=== PATIENT | female | born 1940 | race Caucasian/White ===

== ENCOUNTER 2018-10-20 22:24 | Inpatient (IN) | payer MEDICARE ==
--- NOTE | ~2018-10-20 | PSY ---
PATIENT NAME:PIERRE LEAHY MEDICAL RECORD: [id number] : 38 LOCATION:[facility] ADMISSION DATE: 10/21/18 ACCOUNT: [id number] PSYCHIATRIC EVALUATION DATE OF EVALUATION: 10/21/18 Psychiatric Evaluation IDENTIFYING DATA: The patient is 78 years old and she is admitted to the hospital on a voluntary basis. CHIEF COMPLAINT: Agitation. HISTORY OF PRESENT ILLNESS: The patient lives in an assisted living center in [place]. Apparently, she is refusing to take her medicines there and her family took her out for an outing in the car, but when they brought her back to the assisted living center she became extremely angry and agitated and was accusing them of having stolen her property, specifically her house from her. She was taken to the Emergency Room at [facility] where she continued to be quite agitated and disruptive and they referred her to us. Upon interview, it takes a fair amount of effort to keep her calm and try to have her explain what is going on. She is circumspect in her thought processes and easily escalates, but a brief synopsis of the situation as she sees it is this. She has a house in [place], her . She transferred the house to her son and he was going to care for her, but now she says he just wants to put her in a assisted and take her property from her. That in and of itself is not delusional and certainly may be the case, but it is not something that I can assist her with tonight, but the treatment team and psychosocial rehabilitation counselor will begin working on this and getting additional information as soon as possible. She in the meantime is showing clear evidence of cognitive impairment and clear evidence of what may be either confused or delusional thought content. PAST MEDICAL HISTORY: Significant for vertigo and a transient ischemic attack. She also has cataracts and diabetes. She has a history of hypertension, congestive heart failure and cardiac pacemaker placement. She has had cardiac stents placed along with angioplasty. She is in chronic atrial fibrillation, has edema and angina. She has COPD and history of colon cancer with a resection. She is confused on this matter, telling me at one point that it was 8 years ago and then telling me that it was earlier this year or about 5 months ago. This is an area I am not quite sure about, but it is important and we need clarification on it. She also has a history of diarrhea, constipation and acid reflux. She has chronic back pain, arthritis and has had joint replacement surgery. She has osteoporosis and dermatitis. She has had a hysterectomy and is postmenopausal. The joint replacement was bilaterally and it was with her knees. She has had a colon resection from the cancer which I presume was obviously remote but I do not know if there has been some kind of recurrence. She has had a hernia, hysterectomy, cataracts and cataract surgery. PAST PSYCHIATRIC HISTORY: Significant for an established diagnosis of dementia, she denies this has ever happened and she has a history of depression. FAMILY HISTORY: Negative for psychiatric disease by her account, which I think is unreliable. ALLERGIES: EDGAR INHIBITORS, THE REACTION IS UNKNOWN. CURRENT MEDICATIONS: Include isosorbide mononitrate, vitamin B12, calcium carbonate, probiotic, Eliquis, Colace, Zyrtec, calcium carbonate, Mucinex, hydrocortisone cream, Ultram, Glucophage, Lanoxin, Namenda, Xanax, Claritin, Betapace, potassium, vitamin D3, BuSpar, Zoloft, Singulair, Spiriva, Bumex, Ranexa, Proventil, Nitrostat, Ventolin, Pravachol, aspirin, Feosol, Theragran, acetaminophen, Pepcid, MiraLax, glucosamine, vitamin C, and Keflex. SOCIAL HISTORY: The patient does not smoke or drink and never has. Obviously, she has never used illicit drugs either. She is . She is confused about how many children she had telling me at one point, she had only 1 son and a daughter who is , but then later saying she has 4 children, 1 son and 2 daughters and 1 . I do not know which it is. She is . MENTAL STATUS EXAMINATION: The patient is awake, alert and oriented to person and place, but not to time or situation. Her mood is angry. Her affect is constricted. Thought processes are circumstantial. Memory, concentration, and abstraction abilities are moderately impaired and she denies any active intent to harm herself or others as well as any overt psychotic symptoms. ASSETS: Supportive family members. LIABILITIES: Limited insight. DIAGNOSTIC IMPRESSION: AXIS I: Vascular dementia. AXIS II: None. AXIS III: Coronary artery disease, atrial fibrillation, congestive heart failure, COPD, gastroesophageal reflux disease, osteoarthritis, chronic back pain, diabetes, hyperlipidemia, hypertension. AXIS IV: Severe. AXIS V: Global assessment of functioning is 25. PLAN: At this time, the patient is admitted to the hospital secondary to agitation associated with a dementing illness. I think the illnesses vascular based upon her past stroke, her hyperlipidemia, diabetes and her atrial fibrillation, all of which are likely to cause microvascular disease consistent with a vascular dementia. Clearly, she is in need of significant assistance and supervision. Obviously, the psychosocial rehabilitation counselor will investigate whether she is being exploited as she claims. Whether she is being exploited or not will be a matter to turn over to the authorities for them to investigate, but I can clearly say that this woman is not capable of living on her own and is unlikely to ever be capable of doing so. What is not clear based upon the social circumstances and my initial assessment of her is which environment would be the least restrictive. TRANSINT:[id number] Voice Confirmation ID: [id number] DOCUMENT ID: [id number] LILIAN PETTIT MD at 1204 CC: [id number] DICTATION DATE: 10/21/181910 CONVEYOR FEEDER OFFBEARER: 10/22/18 0323 [facility] IN [facility] [address] [id number]
--- NOTE | ~2018-10-20 | PN ---
PATIENT:PIERRE LEAHY MEDICAL RECORD: [id number] LOCATION:[facility] ADMISSION DATE: 10/21/18 PROGRESS NOTE DATE OF SERVICE: 10/23/2018 SUBJECTIVE: The patient's case was discussed with staff. She has no new complaint. OBJECTIVE: The patient is in good behavioral control with limited insight about her condition. She tolerates her medicines well. ASSESSMENT: No change in diagnoses. PLAN: Current medicines and therapies have been reviewed and will be maintained. Long-term prognosis is guarded. TRANSINT:[id number] Voice Confirmation ID: [id number] DOCUMENT ID: [id number] LILIAN PETTIT MD at 1541 CC: [id number] DICTATION DATE: 10/23/18 1213 WRONG ADDRESS CLERK: 10/23/18 1721 ADM IN [facility] [address] [place] [address]
--- NOTE | ~2018-10-20 | PN ---
PATIENT:PIERRE LEAHY MEDICAL RECORD: [id number] LOCATION:DAT [facility] ADMISSION DATE: 10/21/18 PROGRESS NOTE DATE OF SERVICE: 11/03/2018 SUBJECTIVE: The patient's case was discussed with staff. She has no new complaint. OBJECTIVE: The patient is in good behavioral control with limited insight about her condition. She is tolerating her medicines well. She is going to be returned to the [facility] tomorrow. Her long-term prognosis is guarded. TRANSINT:[id number] Voice Confirmation ID: [id number] DOCUMENT ID: [id number] LILIAN PETTIT MD at 1217 CC: [id number] DICTATION DATE: 11/03/18 1209 FIRE ALARM TECHNICIAN: 11/03/18 1425 DIS IN 11/04/18 [facility] [address] [place] [address]
--- NOTE | ~2018-10-20 | PN ---
PATIENT:PIERRE LEAHY MEDICAL RECORD: [id number] LOCATION:DAT [facility] ADMISSION DATE: 10/21/18 PROGRESS NOTE DATE OF SERVICE: 10/24/2018 SUBJECTIVE: The patient's case was discussed with staff. She has no new complaint. OBJECTIVE: The patient is in good behavioral control and has not been aggressive. Unfortunately, she is severely impaired cognitively and will not budge 1 inch from the position that she is going to go home and live independently in her house in [place]. ASSESSMENT: No change in diagnoses. PLAN: This patient is too impaired to live alone. At this point, licensed master social worker is still sorting out the options, but it is not safe for her to live alone. I am not even sure she still has a house after having been in an assisted living center for 6 months, but this is what she says. TRANSINT:[id number] Voice Confirmation ID: [id number] DOCUMENT ID: [id number] LILIAN PETTIT MD at 1147 CC: [id number] DICTATION DATE: 10/24/18 1643 SHEETER MACHINE OPERATOR: 10/25/18 0047 ADM IN [facility] [address] [place] [address]
--- NOTE | ~2018-10-20 | PN ---
PATIENT:PIERRE LEAHY MEDICAL RECORD: [id number] LOCATION:DAT [facility] ADMISSION DATE: 10/21/18 PROGRESS NOTE DATE OF SERVICE: 10/28/2018 SUBJECTIVE: The patient's case was discussed with staff. She has no new complaint. OBJECTIVE: The patient is in good behavioral control with limited insight about her condition. She does tolerate her medicines well. Her family is trying to take charge of this situation. They have been advised that it is my opinion, I have advised them that she is too advanced with her dementia to live in assisted living. They are going to see with the help of our bilingual social worker about placing her at the [facility]. I think this level of care is appropriate given the current condition. TRANSINT:[id number] Voice Confirmation ID: [id number] DOCUMENT ID: [id number] LILIAN PETTIT MD at 1101 CC: [id number] DICTATION DATE: 10/28/18 1519 AUTO TRANSMISSION TECHNICIAN: 10/28/18 2348 ADM IN [id number] [place] [address]
--- NOTE | ~2018-10-20 | PN ---
PATIENT:PIERRE LEAHY MEDICAL RECORD: [id number] LOCATION:DAT [facility] ADMISSION DATE: 10/21/18 PROGRESS NOTE DATE OF SERVICE: 10/26/2018 SUBJECTIVE: The patient's case was discussed with staff. She has no new complaint. OBJECTIVE: The patient is in good behavioral control with poor insight about her condition. ASSESSMENT: No change in diagnoses. PLAN: Current medicines have been reviewed and will be maintained. Her long-term prognosis is guarded. TRANSINT:[id number] Voice Confirmation ID: [id number] DOCUMENT ID: [id number] LILIAN PETTIT MD at 1018 CC: [id number] DICTATION DATE: 10/26/18 1255 AGRICULTURAL MECHANIC: 10/26/18 1444 ADM IN [id number] [place] [address]
--- NOTE | ~2018-10-20 | PN ---
PATIENT:PIERRE LEAHY MEDICAL RECORD: [id number] LOCATION:DAT [facility] ADMISSION DATE: 10/21/18 PROGRESS NOTE DATE OF SERVICE: 10/27/2018 SUBJECTIVE: The patient's case was discussed with staff. She has no new complaint. OBJECTIVE: The patient is significantly impaired, but denies that she is wanting to hurt herself or others. She is tolerating her medications well. ASSESSMENT: No change in diagnosis. PLAN: Current medicines have been reviewed. I am going to reduce her Xanax slightly and plan to taper her off it completely if possible. Her family says that she does have a history of abusing this medication. TRANSINT:[id number] Voice Confirmation ID: [id number] DOCUMENT ID: [id number] LILIAN PETTIT MD at 1239 CC: [id number] DICTATION DATE: 10/27/18 1431 HOGSHEAD LINER: 10/27/182001 ADM IN [facility] [address] [place] [address]
--- NOTE | ~2018-10-20 | PN ---
PATIENT:PIERRE LEAHY MEDICAL RECORD: [id number] LOCATION:DAT [facility] ADMISSION DATE: 10/21/18 PROGRESS NOTE DATE OF SERVICE: 11/02/2018 SUBJECTIVE: The patient's case was discussed with staff. She has no new complaint. OBJECTIVE: The patient is in good behavioral control. She has fairly limited insight about her condition. ASSESSMENT: No change in diagnoses. PLAN: The patient will have the final quarter of a milligram a day of Xanax that she is taking discontinued. The taper that has occurred so far has been without any consequence and I think it is reasonable to go ahead and discharge this medicine, especially since she has a history of overtaking it. I do not see a clinical indication for it at this point. TRANSINT:[id number] Voice Confirmation ID: [id number] DOCUMENT ID: [id number] LILIAN PETTIT MD at 0858 CC: [id number] DICTATION DATE: 11/02/18 121 REFRIGERATOR ROOM CLERK: 11/02/18 1452 ADM IN [address] [id number] [place] [address]
--- NOTE | ~2018-10-20 | DS ---
PATIENT:PIERRE LEAHY :38 MEDICAL RECORD: [id number] DISCHARGE SUMMARY ADMISSION DATE: 10/21/18 DISCHARGE DATE: 11/04/18 IDENTIFYING DATA: The patient is 78 years old and she was admitted to the hospital on a voluntary basis because of agitation. The patient lives in an assisted living center in [place]. She has been refusing to take her medicines and when her family took her out for an outing and brought her back, she refused to go into the assisted living center, became agitated and aggressive and accusing others of trying to steal from her. Specifically, she was accusing them of trying to steal her house, which in actuality she had signed over to her son many years ago. She has been in the assistance and living center for a long time. They brought her to the Emergency Room at [facility], where she continued to be disruptive, agitated, and delusional and they referred her to us for treatment. HOSPITAL COURSE: The patient was admitted to the hospital and fully evaluated from both a medical, psychological, and social standpoint. She was treated with both mood stabilizing and memory enhancing medications. Based upon her medical history that included atrial fibrillation, coronary artery disease, diabetes, hyperlipidemia, and hypertension, it was felt that she was suffering from a vascular dementia. She also had a pattern consistent with this and that there were some areas where she was fairly intact and others where she was quite impaired. It was not consistent with an Alzheimer disease where there is a global generalized and gradual deterioration. She was treated with both memory enhancing and mood stabilizing medications and did show improvement. She was subsequently returned to the same facility that she had refused to enter previously. DISCHARGE DIAGNOSES: AXIS I: Vascular dementia. AXIS II: None. AXIS III: Coronary artery disease, atrial fibrillation, congestive heart failure, chronic obstructive pulmonary disease, gastroesophageal reflux disease, osteoarthritis, chronic back pain, diabetes, hyperlipidemia, hypertension. AXIS IV: Severe. AXIS V: Global assessment of functioning 30. PLAN: At this time, the patient is admitted to the hospital for comprehensive medical, psychological, and social evaluation. She will be treated with mood stabilizing and memory enhancing medications. She denies any active intent to harm herself or others. Long-term prognosis is guarded. TRANSINT:[id number] Voice Confirmation ID: [id number] DOCUMENT ID: [id number] LILIAN PETTIT MD CC: [id number] DICTATION DATE: 11/07/18 1401 HARVEST WORKER FRUIT: 11/08/18 0154 DIS IN 11/04/18 [facility] [address] [place] [address]
--- NOTE | ~2018-10-20 | PN ---
PATIENT:PIERRE LEAHY MEDICAL RECORD: [id number] LOCATION:DAT [facility] ADMISSION DATE: 10/21/18 PROGRESS NOTE DATE OF SERVICE: 10/25/2018 SUBJECTIVE: The patient's case was discussed with staff. She has no new complaint. OBJECTIVE: The patient is in good behavioral control with limited insight about her condition. She is tolerating her medications well. ASSESSMENT: No change in diagnoses. PLAN: The patient will be given Aricept at a dose of 5 mg at bedtime. Aricept is being used to treat her cognitive impairment. She will be monitored for clinical changes associated with its use. TRANSINT:[id number] Voice Confirmation ID: [id number] DOCUMENT ID: [id number] LILIAN PETTIT MD at 1142 CC: [id number] DICTATION DATE: 10/25/18 1215 CODING MACHINE OPERATOR: 10/25/18 1221 ADM IN [address] [address]
--- NOTE | ~2018-10-20 | PN ---
PATIENT:PIERRE LEAHY MEDICAL RECORD: [id number] LOCATION:DAT [facility] ADMISSION DATE: 10/21/18 PROGRESS NOTE DATE OF SERVICE: 10/22/2018 SUBJECTIVE: The patient's case was discussed with staff. She has no new complaint. OBJECTIVE: The patient has eaten and slept reasonably well. She insists that she needs to go to her house in [place] and that no one lives there and that there are utilities on and that she still owns it. I think there is significant reason to suspect that all of that is correct, but at this point, I am going to continue to gather collateral sources of information. There is something of an impediment with that since it is a weekend and I do not have access to our certified social workers in health care. She is clearly impaired and in my opinion should not be living alone. I do not know if there really is a house, if it is still there, if she still owns it and I am not sure how it would still have utilities and be vacant after she has been gone for almost 6 months. TRANSINT:[id number] Voice Confirmation ID: [id number] DOCUMENT ID: [id number] LILIAN PETTIT MD at 1052 CC: [id number] DICTATION DATE: 10/22/18 1221 HERBARIUM WORKER: 10/22/18 1520 ADM IN [id number] [place] [address]
--- NOTE | ~2018-10-20 | PN ---
PATIENT:PIERRE LEAHY MEDICAL RECORD: [id number] LOCATION:DAT [facility] ADMISSION DATE: 10/21/18 PROGRESS NOTE DATE OF SERVICE: 10/30/2018 SUBJECTIVE: The patient's case was discussed with staff. She has no new complaint. OBJECTIVE: The patient is in good behavioral control with limited insight about her condition. She has not been aggressive. ASSESSMENT: No change in diagnoses. PLAN: Current medicines have been reviewed and will be maintained. Long-term prognosis is guarded. TRANSINT:[id number] Voice Confirmation ID: [id number] DOCUMENT ID: [id number] LILIAN PETTIT MD at 1555 CC: [id number] DICTATION DATE: 10/30/18 1009 UNDERGROUND MINE MACHINERY MECHANIC: 10/30/18 1107 ADM IN [address] [address]
--- NOTE | ~2018-10-20 | PN ---
PATIENT:PIERRE LEAHY MEDICAL RECORD: [id number] LOCATION:DAT [facility] ADMISSION DATE: 10/21/18 PROGRESS NOTE DATE OF SERVICE: 10/31/2018 SUBJECTIVE: The patient's case was discussed with staff. She has no new complaint. OBJECTIVE: The patient denies intent to harm herself or others. She generally tolerates her medications well. She has not been behaviorally out of control, but she is very argumentative about her circumstances, insisting that she has family members at home who can care for her. This simply is not the case. Any effort to tell her that just makes her angry. ASSESSMENT: No change in diagnoses. PLAN: I am going to taper the patient's Xanax a little further. I do plan to discontinue it altogether in a couple of days. TRANSINT:[id number] Voice Confirmation ID: [id number] DOCUMENT ID: [id number] LILIAN PETTIT MD at 1443 CC: [id number] DICTATION DATE: 10/31/18 1631 CLINICAL RESOURCE NURSE: 10/31/18 1905 ADM IN [facility] [address] [place] [address]
--- NOTE | ~2018-10-20 | PN ---
PATIENT:PIERRE LEAHY MEDICAL RECORD: [id number] LOCATION:DAT [facility] ADMISSION DATE: 10/21/18 PROGRESS NOTE DATE OF SERVICE: 11/01/2018 SUBJECTIVE: The patient's case was discussed with staff. She has no new complaint. OBJECTIVE: The patient is in good behavioral control with limited insight about her condition. She generally tolerates her medicines well. ASSESSMENT: No change in diagnoses. PLAN: Supportive and educational interventions were made. I anticipate the patient can be discharged soon if this level of improvement continues. TRANSINT:[id number] Voice Confirmation ID: [id number] DOCUMENT ID: [id number] LILIAN PETTIT MD at 1128 CC: [id number] DICTATION DATE: 11/01/18 1548 MILITARY PAY CLERK: 11/01/18 1722 ADM IN [id number] [place] [address]
--- NOTE | ~2018-10-20 | PN ---
PATIENT:PIERRE LEAHY MEDICAL RECORD: [id number] LOCATION:DAT [facility] ADMISSION DATE: 10/21/18 PROGRESS NOTE DATE OF SERVICE: 10/29/2018 SUBJECTIVE: The patient's case was discussed with staff. She has no new complaint. OBJECTIVE: The patient denies intent to harm herself or others. She is oriented to person and place. She is tolerating her medicines well and she is eating and sleeping reasonably well. ASSESSMENT: No change in diagnoses. PLAN: I anticipate that within the next 7 days she can reasonably be transitioned to the [facility]. TRANSINT:[id number] Voice Confirmation ID: [id number] DOCUMENT ID: [id number] LILIAN PETTIT MD at 0924 CC: [id number] DICTATION DATE: 10/29/18 1139 CAR PORTER: 10/29/18 1209 ADM IN [id number] [place] [address]
[2018-10-21] MEDS ORDERED: ISOSORBIDE MONO30 M1 PO ×2 (00:38→01:10)
[2018-10-21] MEDS ORDERED: VITAMIN B-121000 MCG IM (00:42)
[2018-10-21] MEDS ORDERED: CALCIUM 600 +1 EAC3 PO (00:43)
[2018-10-21] MEDS ORDERED: ELIQUIS2.5 MG PO (00:45)
[2018-10-21] MEDS ORDERED: PROBIOTIC250 MG PO (00:45)
[2018-10-21] MEDS ORDERED: COLACE100 MG PO (00:46)
[2018-10-21] MEDS ORDERED: ZYRTEC10 MG PO (00:46)
[2018-10-21] MEDS ORDERED: GAS-X125 M1 PO (00:47)
[2018-10-21] MEDS ORDERED: TUMS X-STR300 MG PO (00:48)
[2018-10-21] MEDS ORDERED: MUCINEX600 MG PO (00:49)
[2018-10-21] MEDS ORDERED: HYDROCORTISONE30 G8 TOPICAL (00:51)
[2018-10-21] MEDS ORDERED: FLUTICASONE PRO16 GM NASAL (00:51)
[2018-10-21] MEDS ORDERED: ULTRAM50 MG PO (00:52)
[2018-10-21] MEDS ORDERED: GLUCOPHAGE500 MG PO (00:53)
[2018-10-21] MEDS ORDERED: LANOXIN125 MCG PO (00:54)
[2018-10-21] MEDS ORDERED: NAMENDA5 MG PO (00:54)
[2018-10-21] MEDS ORDERED: XANAX0.5 MG PO (00:55)
[2018-10-21] MEDS ORDERED: CLARITIN 10 MG10 MG PO (00:56)
[2018-10-21] MEDS ORDERED: BETAPACE 120 M120 MG PO (00:57)
[2018-10-21] MEDS ORDERED: KLOR-CON 1010 MEQ PO (00:58)
[2018-10-21] MEDS ORDERED: BUSPAR10 MG PO (00:59)
[2018-10-21] MEDS ORDERED: VITAMIN D31000 UNIT PO (00:59)
[2018-10-21] MEDS ORDERED: ZOLOFT100 MG PO (01:00)
[2018-10-21] MEDS ORDERED: SINGULAIR5 MG PO (01:01)
[2018-10-21] MEDS ORDERED: SPIRIVA RESPIMAT4 G1 INH (01:01)
[2018-10-21] MEDS ORDERED: BUMEX2 MG PO (01:06)
[2018-10-21] MEDS ORDERED: RANEXA1000 MG PO (01:06)
[2018-10-21] MEDS ORDERED: NITROSTAT0.4 MG SL (01:08)
[2018-10-21] MEDS ORDERED: PROVENTIL/2.5 MG/3 M INH (01:08)
[2018-10-21] MEDS ORDERED: VENTOLIN HFA18 GM INH (01:09)
[2018-10-21] MEDS ORDERED: PRAVACHOL40 MG PO (01:10)
[2018-10-21] MEDS ORDERED: BAYER CHEWABLE81 MG PO (01:11)
[2018-10-21] MEDS ORDERED: MULTI-DAY VITAM1 TAB PO (01:11)
[2018-10-21] MEDS ORDERED: ACETAMINOPHEN500 M1 PO (01:12)
[2018-10-21] MEDS ORDERED: FERROUS SULFAT325 MG PO (01:12)
[2018-10-21] MEDS ORDERED: PEPCID AC20 MG PO (01:13)
[2018-10-21] MEDS ORDERED: GLUCOSAMINE HC500 MG PO (01:14)
[2018-10-21] MEDS ORDERED: MIRALAX17 GM PO (01:14)
[2018-10-21] MEDS ORDERED: ASCORBIC ACID500 MG PO (01:15)
[2018-10-21 02:02] VITALS: BP 196/85; BMI 29.1
[2018-10-21] MEDS ORDERED: KEFLEX500 MG PO (02:26)
[2018-10-21 08:34] LABS: BASOPHILS 0.3 % (0-2); EOSINOPHILS 1.4 % (0-7); HEMATOCRIT 38.9 % (36.0-48.0); HEMOGLOBIN 12.7 g/dL (12-16); IMMATURE GRANULOCYTES 0.6 % (0-5); LYMPHOCYTES 17.1 % (15-50); MCH 29.5 pg (26.0-34.0); MCHC 32.6 g/dL (31.0-37.0); MCV 90.3 fL (80.0-100.0); MEAN PLATELET VOLUME 9.6 fL (7.4-10.4); NEUTROPHILS 72.6 % (40-80); PLATELET COUNT 288 10x3/uL (130-400); RBC 4.31 10x6/uL (4.00-5.40); RDW 13.1 % (11.5-14.5); WBC 12.4 10x3/uL (4.8-10.8)
[2018-10-21 08:49] LABS: APPEARANCE CLEAR (CLEAR); BILIRUBIN NEGATIVE (NEGATIVE); COLOR YELLOW (YELLOW); GLUCOSE NEGATIVE (NEGATIVE); KETONE NEGATIVE (NEGATIVE); NITRITE NEGATIVE (NEGATIVE); PROTEIN NEGATIVE (NEGATIVE); SPECIFIC GRAVITY 1.005 (1.005-1.020); UROBILINOGEN NORMAL (NORMAL)
[2018-10-21 09:05] LABS: ALBUMIN 3.5 g/dL (3.4-5.0); ANION GAP 15.4 mmol/L (8-16); BILIRUBIN - TOTAL 0.4 mg/dL (0.2-1.3); CALCIUM 8.5 mg/dL (8.5-10.1); CARBON DIOXIDE 25.1 mmol/L (21.0-32.0); CHOL - HDL RATIO 3.2 ratio (2.3-4.1); CREATININE - SERUM 1.5 mg/dL (0.6-1.3); LDL-HDL RATIO 1.4 ratio (1.5-3.5); POTASSIUM - SERUM 4.5 mmol/L (3.5-5.1); PROTEIN - SERUM 6.8 g/dL (6.4-8.2); THYROID STIMULATING HORMONE 2.6 uIU/mL (0.36-3.74)
[2018-10-21 09:14] VITALS: BP 160/50
[2018-10-21 10:08] VITALS: BMI 29.1
[2018-10-21 13:13] VITALS: Wt 69.9 kg
[2018-10-21 19:40] VITALS: BP 100/64
[2018-10-22 07:18] LABS: RAPID PLASMA REAGIN Non Reactive (Non Reactive)
[2018-10-22 09:33] VITALS: BP 180/76
[2018-10-22 11:13] LABS: FOLATE (FOLIC ACID) - SERUM >20.0 ng/mL (>3.0)
[2018-10-22 12:12] LABS: VITAMIN D 25 HYDROXY 46.3 ng/mL (30.0-100.0)
[2018-10-23 09:38] VITALS: BP 144/77
[2018-10-23 20:31] VITALS: BP 175/73
[2018-10-24 07:00] VITALS: BP 168/84
[2018-10-24 20:20] VITALS: BP 122/50
[2018-10-25 07:00] VITALS: BP 166/77
[2018-10-25 20:00] VITALS: BP 165/67
[2018-10-26 19:55] VITALS: BP 161/72
[2018-10-27 09:30] VITALS: BP 162/78
[2018-10-27 19:25] VITALS: BP 158/78
[2018-10-28 09:58] VITALS: BP 160/64
[2018-10-28 20:24] VITALS: BP 171/91
[2018-10-29 08:00] VITALS: BP 157/88
[2018-10-29 19:39] VITALS: BP 168/74
[2018-10-30 07:00] VITALS: BP 163/81
[2018-10-30 20:41] VITALS: BP 171/88
[2018-10-31 08:00] VITALS: BP 195/97
[2018-10-31 19:33] VITALS: BP 150/79
[2018-11-01 08:00] VITALS: BP 169/82
[2018-11-01 20:04] VITALS: BP 146/59
[2018-11-02 08:00] VITALS: BP 163/80
[2018-11-02 19:36] VITALS: BP 144/71
[2018-11-03 09:50] VITALS: BP 144/66
[2018-11-03] MEDS ORDERED: Aricept PO (12:11)
[2018-11-03] MEDS ORDERED: HYDRALAZINE HCL25 MG PO (12:11)
[2018-11-03] MEDS ORDERED: LIDODERM 5 %1 PATCH TRANSDERM (12:13)
[2018-11-03 20:00] VITALS: BP 174/83
== END 2018-11-04 10:20 | disposition home or self-care (01) | DRG 57 ==
LOC: D.PSYCH 22:24
PROVIDERS: Psychiatry & Neurology Psychiatry
DX: I69.818 Other symptoms and signs involving cognitive functions following other cerebrovascular disease (principal); F01.51 Vascular dementia, unspecified severity, with behavioral disturbance; I25.10 Atherosclerotic heart disease of native coronary artery without angina pectoris; I11.0 Hypertensive heart disease with heart failure; I50.9 Heart failure, unspecified; I48.2 Chronic atrial fibrillation; F41.9 Anxiety disorder, unspecified; F32.9 Major depressive disorder, single episode, unspecified; G89.29 Other chronic pain; M54.9 Dorsalgia, unspecified; M19.90 Unspecified osteoarthritis, unspecified site; J44.9 Chronic obstructive pulmonary disease, unspecified; K21.9 Gastro-esophageal reflux disease without esophagitis; E11.9 Type 2 diabetes mellitus without complications; E78.5 Hyperlipidemia, unspecified; K59.09 Other constipation; E55.9 Vitamin D deficiency, unspecified; D64.9 Anemia, unspecified; J30.9 Allergic rhinitis, unspecified

== ENCOUNTER 2019-07-17 05:49 | Day surgery (SDC) | payer MEDICARE ==
[~2019-07-17] VITALS: Ht 154.9 cm; Wt 66.8 kg
[~2019-07-17 05:49] MED LIST: ACETAMINOPHEN500 M1 PO; ASCORBIC ACID500 MG PO; Aricept PO; BAYER CHEWABLE81 MG PO; BETAPACE 120 M120 MG PO; BUMEX2 MG PO; BUSPAR10 MG PO; CALCIUM 600 +1 EAC3 PO; CLARITIN 10 MG10 MG PO; COLACE100 MG PO; ELIQUIS2.5 MG PO; FERROUS SULFAT325 MG PO; FLUTICASONE PRO16 GM NASAL; GAS-X125 M1 PO; GLUCOPHAGE500 MG PO; GLUCOSAMINE HC500 MG PO; HYDRALAZINE HCL25 MG PO; HYDROCORTISONE30 G8 TOPICAL; ISOSORBIDE MONO30 M1 PO; KEFLEX500 MG PO; KLOR-CON 1010 MEQ PO; LANOXIN125 MCG PO; LIDODERM 5 %1 PATCH TRANSDERM; MIRALAX17 GM PO; MUCINEX600 MG PO; MULTI-DAY VITAM1 TAB PO; NAMENDA5 MG PO; NITROSTAT0.4 MG SL; PEPCID AC20 MG PO; PRAVACHOL40 MG PO; PROBIOTIC250 MG PO; PROVENTIL/2.5 MG/3 M INH; RANEXA1000 MG PO; SINGULAIR5 MG PO; SPIRIVA RESPIMAT4 G1 INH; TUMS X-STR300 MG PO; ULTRAM50 MG PO; VENTOLIN HFA18 GM INH; VITAMIN B-121000 MCG IM; VITAMIN D31000 UNIT PO; XANAX0.5 MG PO; ZOLOFT100 MG PO; ZYRTEC10 MG PO
[2019-07-17 06:15] LABS: BASOPHILS 0.4 % (0-2); EOSINOPHILS 1.1 % (0-7); HEMATOCRIT 27.8 % (36.0-48.0); HEMOGLOBIN 8.9 g/dL (12-16); IMMATURE GRANULOCYTES 0.4 % (0-5); LYMPHOCYTES 14.2 % (15-50); MCH 30.2 pg (26.0-34.0); MCV 94.2 fL (80.0-100.0); MONOCYTES 10.2 % (2-11); NEUTROPHILS 73.7 % (40-80); PLATELET COUNT 233 10x3/uL (130-400); RBC 2.95 10x6/uL (4.00-5.40); RDW 15.4 % (11.5-14.5); WBC 5.4 10x3/uL (4.8-10.8)
[2019-07-17 06:38] LABS: ANION GAP 12.9 mmol/L (8-16); CALCIUM 9.1 mg/dL (8.5-10.1); CARBON DIOXIDE 27.5 mmol/L (21.0-32.0); CREATININE - SERUM 1.5 mg/dL (0.6-1.3); POTASSIUM - SERUM 4.4 mmol/L (3.5-5.1)
[2019-07-17] MEDS ORDERED: BAYER CHEWABLE81 MG PO (06:45)
[2019-07-17] MEDS ORDERED: OSTEO BI-FLEX1 EAC1 PO (06:48)
[2019-07-17] MEDS ORDERED: ZYRTEC10 MG PO (06:54)
[2019-07-17 07:10] VITALS: BP 169/99; Ht 154.9 cm; Wt 66.8 kg
--- NOTE | 2019-07-18 15:07 | OP ---
PATIENT NAME: PIERRE LEAHY MEDICAL RECORD: [id number] :38 LOCATION:[facility]Y ADMISSION DATE: SURGEON: LOUISE MAXWELL DO DATE OF OPERATION: 07/17/2019 PROCEDURE: Colonoscopy with polypectomy. INDICATIONS FOR PROCEDURE: Anemia, abnormal barium enema, history of colon cancer in 2016, status post right hemicolectomy on 06/26/2019, abnormal weight loss. SCOPE: Olympus video pediatric colonoscope. MEDICATIONS: Propofol 700 mg IV per anesthesia. WITHDRAWAL TIME: 66 minutes. ESTIMATED BLOOD LOSS: Minimal. COMPLICATIONS: None. FINDINGS: Informed consent was given. The patient was made comfortable with the above medication. After reaching an adequate level of sedation by slow IV push, the patient was placed on left side. A digital rectal examination was performed and was normal. The endoscope was advanced under direct visualization through the rectum to the cecum and anastomosis indicated by the terminal ileum, which appeared to be a [id number] anastomosis to the colon. The endoscope was slowly withdrawn and mucosa was carefully examined. The prep quality was fair. There were multiple polyps visualized on today's examination. In the ascending colon, there were 8 separate polyps, which ranged in size from 4 mm-1.4 cm. They were all removed using a hot snare. In the descending colon, there was a large polyp that measured approximately 1.5 cm. It was removed using EMR technique with injection of normal saline for a pillow followed by hot snare polypectomy. There was a polyp located at 50 cm, which measured approximately 9 mm in diameter. It was removed using a hot snare. In the sigmoid colon, there was another large broad-based polyp, which was a mixed type that measured approximately 2 cm in size. It was removed using endoscopic mucosal resection technique with a saline pillow followed by piecemeal hot snare polypectomy. This polyp was tattooed using Mirlande ink both proximally and distally for further interventions in the future if indicated. There was also evidence of mild diverticulosis involving the descending and sigmoid colon. Retroflexion was performed in the rectum with grade I internal hemorrhoids visualized. The endoscope was withdrawn from the patient. The patient tolerated the procedure well and there were no immediate complications. IMPRESSION: 1. Multiple polyps as described above, removed using a combination of a hot snare and EMR technique. 2. Mild diverticulosis. 3. Grade I internal hemorrhoids without bleeding. PLAN AND RECOMMENDATIONS: 1. Discharge home when recovery parameters are met. 2. Follow up biopsy specimen results. 3. High fiber diet. OPERATIVE REPORT [id number] PIERRE LEAHY 4. Continue current medications. 5. Recall will be dependent on results of pathology, but if there is no high-grade dysplasia or cancerous cells within any of the polyps removed today, I would recommend a recall in 6 months for reevaluation of all sites, especially the sigmoid site that was tattooed. TRANSINT:[id number] Voice Confirmation ID: [id number] DOCUMENT ID: [id number] LOUISE MAXWELL DO at 1507 CC: [id number] DICTATION DATE: 07/17/1943 TRANSMISSION SYSTEMS OPERATOR: 07/17/19 0959 [facility] 07/17/19 [facility] [address] [place] [address]
== END 2019-07-17 10:45 | disposition home or self-care (01) ==
LOC: D.OPS 05:49
PROVIDERS: ATTEND Internal Medicine Gastroenterology
DX: D12.2 Benign neoplasm of ascending colon (principal); D12.4 Benign neoplasm of descending colon; D12.5 Benign neoplasm of sigmoid colon; K57.30 Diverticulosis of large intestine without perforation or abscess without bleeding; K64.0 First degree hemorrhoids; Z01.812 Encounter for preprocedural laboratory examination